=== PATIENT | female | born 1980 | race Caucasian/White ===

== ENCOUNTER → 2025-06-08 13:01 | Outpatient (REF) | payer OTHER, SELFPAY | LOC: RAD 13:01 | DX: R10.11 Right upper quadrant pain (principal) | CPT/HCPCS: 76705 ==

== ENCOUNTER → 2025-07-09 10:24 | Outpatient (REF) | payer OTHER, SELFPAY | LOC: HWRAD 10:24 | PROVIDERS: ATTENDING PHYSICIAN Internal Medicine | DX: R10.11 Right upper quadrant pain (principal) | CPT/HCPCS: 74176 ==